=== PATIENT | female | born 1940 | race Caucasian/White ===

== ENCOUNTER 2018-03-18 07:37 | Day surgery (SDC) | payer BC ==
[2018-03-13 15:30] VITALS: BMI 32.0
[2018-03-18 09:34] VITALS: TEMP 97.9
[2018-03-18 10:35] VITALS: BP 110/56; PULSE 62
--- NOTE | 2018-03-19 14:09 | PATH ---
Surgical Pathology Report Patient Name: AMY GARCÍA [facility]. Rec. #: [id number] /Age/Gender: 1940 (Age: 77) / F Account: [id number] Location: U-ENDOSCOPY Taken: 03/18/2018 Received: 03/18/2018 Reported: 03/19/2018 Physicians: Yani Payne M.D. Specimen(s) Received A: BX RIGHT COLON POLYP B: BX DISTAL TRANSVERSE COLON POLYP Clinical History Colon screening, history of diverticulitis Postoperative diagnosis: Colon polyps, diverticulosis Final Diagnosis A. RIGHT COLON POLYP, BIOPSY: COLONIC MUCOSA WITH FOCAL LYMPHOID AGGREGATE. B. DISTAL TRANSVERSE COLON POLYP, POLYPECTOMY: TUBULAR ADENOMA. Electronically Signed Thaddeus Richmond M.D. Gross Description A. Received in formalin, labeled "biopsy right colon polyp" are 2 song, irregular portions of soft tissue measuring 0.3 and 0.4 cm. in greatest dimension. The specimens are submitted in toto in one cassette. B. Received in formalin, labeled "biopsy distal transverse colon polyp" are 2 song, irregular portions of soft tissue averaging 0.3 cm. in greatest dimension. The specimens are submitted in toto in one cassette. 03/18/2018 saudi03/18/2018
== END 2018-03-18 10:33 | disposition home or self-care (01) ==
LOC: JASU-ENDO 07:37
PROVIDERS: ATTEND Internal Medicine Gastroenterology
PROC: 0DBL8ZX Excision of Transverse Colon, Via Natural or Artificial Opening Endoscopic, Diagnostic (ICD-10-PCS; 2018-03-18)
PROC: 0DBK8ZX Excision of Ascending Colon, Via Natural or Artificial Opening Endoscopic, Diagnostic (ICD-10-PCS; principal; 2018-03-18 08:45)
DX: Z12.11 Encounter for screening for malignant neoplasm of colon (principal); D12.2 Benign neoplasm of ascending colon; D12.3 Benign neoplasm of transverse colon; K57.30 Diverticulosis of large intestine without perforation or abscess without bleeding
CPT/HCPCS: 88305-TC

== ENCOUNTER 2019-11-15 23:48 | Emergency (ER) | payer BC ==
[2019-11-15 23:57] VITALS: BP 154/86; PULSE 86; TEMP 98.1; BMI 34.2
--- NOTE | 2019-11-16 00:12 | PDOC ---
History of Present Illness - General Chief Complaint: Back Pain Stated Complaint: BACK PAIN Time Seen by Provider: 11/16/19 00:12 History Source: Patient Exam Limitations: No Limitations - History of Present Illness Initial Comments: 11/16/19 00:12 79 year old female w PMHx HLD, L paraspinal thoracolumbar mass presenting w 2d persistent mild pain from paraspinal mass worse when lying on back. Took 2 advil w/o relief. 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 Concerned that mass is hurting now, which it never did before. Denies trauma, BLE weakness/numbness, urinary/bowel mvmt changes, fever, SOB Past History - Medical History Allergies/Adverse Reactions: Allergies Allergy/AdvReac Type Severity Reaction Status Date / Time No Known Allergies Allergy Verified 11/15/19 23:54 Home Medications: Ambulatory Orders Pravastatin Sodium 40 mg PO HS 01/06/14 Acetaminophen [Tylenol .Regular Strength -] 650 mg PO Q6H PRN tablet 12/13/17 Polyethylene Glycol 3350 [Miralax 119 gm Btl -] 17 gm PO BID bottle 12/13/17 Anemia: No Asthma: No Cancer: No Cardiac Disorders: No CVA: No COPD: No CHF: No Dementia: No Diabetes: No GI Disorders: No Disorders: No HTN: No Hypercholesterolemia: Yes Liver Disease: No Seizures: No Thyroid Disease: No - Surgical History Abdominal Surgery: Yes Appendectomy: No Cardiac Surgery: No Cholecystectomy: No Lung Surgery: No Neurologic Surgery: No Orthopedic Surgery: Yes (LEFT KNEE ARTHROSCOPY; Bunionectomy and Hammer Toe Repair) - Psycho-Social/Smoking History Smoking History: Never smoked Have you smoked in the past 12 months: No Information on smoking cessation initiated: No - Substance Abuse Hx (Audit-C & DAST Scrn) How often the patient has a drink containing alcohol: Never Score: In Men: 4 or > Positive; In Women: 3 or > Positive: 0 Screen Result (Pos requires Nsg. Audit-10AR): Negative In the last yr the pt used illegal drug/Rx for NonMed reason: No Score: Yes response is considered Positive: 0 Screen Result (Positive result requires Nsg. DAST-10): Negative Review of Systems - Review of Systems Constitutional: No: Chills, Fever HEENTM: No: Eye Pain, Nose Pain Respiratory: No: Cough, Shortness of Breath Cardiac (ROS): No: Chest Pain, Lightheadedness ABD/GI: No: Abdominal Distended, Constipated, Diarrhea, Nausea, Vomiting : No: Burning, Dysuria Musculoskeletal: Yes: Back Pain. No: Joint Pain Integumentary: No: Bruising, Dryness Neurological: No: Headache, Seizure Psychiatric: No: Anxiety, Depression Endocrine: No: Intolerance to Cold, Intolerance to Heat Hematologic/Lymphatic: No: Anemia, Blood Clots *Physical Exam - Vital Signs Last Vital Signs Temp Pulse Resp BP Pulse Ox 98.1 F 86 20 154/86 97 11/15/19 23:54 11/15/19 23:54 11/15/19 23:54 11/15/19 23:54 11/15/19 23:54 - Physical Exam General Appearance: Yes: Nourished, Appropriately Dressed, Mild Distress HEENT: positive: EOMI, PRABHA, Normal Voice, Hearing Grossly Normal. negative: Scleral Icterus (R), Scleral Icterus (L), Nasal Congestion Neck: positive: Supple. negative: Tender, Rigid Respiratory/Chest: positive: Lungs Clear, Normal Breath Sounds. negative: Chest Tender, Respiratory Distress Cardiovascular: positive: Regular Rhythm, Regular Rate, S1, S2. negative: Edema, Murmur Gastrointestinal/Abdominal: positive: Normal Bowel Sounds, Flat, Soft. negative: Tender, Organomegaly Musculoskeletal: positive: Other (4x4cm L thoracolumbar subcutaneous firm minimally tender mass, no skin changes). negative: Vertebral Tenderness Integumentary: positive: Normal Color, Warm Neurologic: positive: conventional underwriter II-XII NML intact, Fully Oriented, Alert, Normal Mood/Affect, Normal Response, Motor Strength 5/5, Respond to painful stimul, Responsive. negative: Numbness, Confused, Disoriented Medical Decision Making - Medical Decision Making 11/16/19 00:53 79 year old female w PMHx HLD, L paraspinal thoracolumbar mass presenting w 2d persistent mild pain from paraspinal mass Likely lipoma (well circumscribed mass on bedside US). Low concern for cauda equina (no BLE weakness, intact urinary/bowel mvmt) vs abscess (afebrile) Given lido patch, tylenol DC home w PCP f/u and supportive care Discharge - Discharge Information Problems reviewed: Yes Clinical Impression/Diagnosis: Mass on back Back pain Qualifiers: Back pain location: thoracic back pain Chronicity: acute Back pain laterality: left Qualified Code(s): M54.6 - Pain in thoracic spine Condition: Stable Disposition: HOME - Follow up/Referral Referrals: Rosales Gonsales MD [Primary Care Provider] - - Patient Discharge Instructions Patient Printed Discharge Instructions: DI for Thoracic Back Pain Additional Instructions: Your exam did not show anything concerning Take tylenol or ibuprofen every 6 hours for pain Please follow up with your primary care doctor Come back to the ED if you have trouble walking, leg weakness/numbness, or trouble urinating or passing stool - Post Discharge Activity
[2019-11-16] MEDS ORDERED: ACETAMINOPHEN 500 MG TABLET (FP) PO ONE (00:35)
[2019-11-16] MEDS ORDERED: LIDOCAINE 5% TOPICAL PATCH TP ONE (00:35)
[2019-11-16] MEDS ORDERED: LIDOCAINE 5% TOPICAL PATCH ONE (00:40)
[2019-11-16] MEDS ORDERED: ACETAMINOPHEN 325 MG TABLET (FP) ONE (00:40)
--- NOTE | 2019-11-16 01:09 | PDOC ---
Documentation entered by Javon Gan SCRIBE, acting as scribe for Ivis Chopra MD. Ivis Chopra MD: This documentation has been prepared by the joseibe, Javon Gan SCRIBE, under my direction and personally reviewed by me in its entirety. I confirm that the documentation accurately reflects all work, treatment, procedures, and medical decision making performed by me. Attending Attestation - Resident Resident Name: Quang Colon - ED Attending Attestation I have performed the following: I have examined & evaluated the patient, The case was reviewed & discussed with the resident, I agree w/resident's findings & plan, Exceptions are as noted - HPI HPI: 11/16/19 01:08 The patient is an 79 year old female with a significant past medical history of HLD and L paraspinal thoracolumbar mass who presents to the emergency department with constant mild back pain, which is worsened with lying down, that began 2 days ago. 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 The patient also endorses she took 2 Advil with no relief. The patient denies a history of similar symptoms. The patient denies trauma, general weakness, chest pain and shortness of breath. Denies fever, chills and/or any GI symptoms. Denies any symptoms. Denies any other symptoms. Allergies: NKDA PCP: Dr. Gonsales - Physicial Exam PE: 11/16/19 00:27 GENERAL: Awake, alert, and fully oriented, in no acute distress HEAD: No signs of trauma EYES: PERRLA, EOMI, sclera anicteric, conjunctiva clear ENT: Auricles normal inspection, hearing grossly normal, nares patent, oropharynx clear without exudates. Moist mucosa NECK: Normal ROM, supple, no lymphadenopathy, JVD, or masses LUNGS: Breath sounds equal, clear to auscultation bilaterally. No wheezes, and no crackles HEART: Regular rate and rhythm, normal S1 and S2, no murmurs, rubs or gallops ABDOMEN: Soft, nontender, normoactive bowel sounds. No guarding, no rebound. No masses EXTREMITIES: Normal range of motion, no edema. No clubbing or cyanosis. No cords, erythema, or tenderness NEUROLOGICAL: Cranial nerves II through XII grossly intact. Normal speech, normal gait. Motor and sensation intact. SKIN: Warm, Dry, normal turgor, no rashes. +Moderate-sized soft mobile lesion to the L mid-back, no induration, no overlying skin changes. - Medical Decision Making Pain is localized to the area of known lipoma. No signs of cellulitis. Lidoderm patch applied. Outpatient f/u, as she may want to have it resected on an elective basis due to the size and that it is getting painful at times. Discharge - Discharge Information Problems reviewed: Yes Clinical Impression/Diagnosis: Mass on back Back pain Qualifiers: Back pain location: thoracic back pain Chronicity: acute Back pain laterality: left Qualified Code(s): M54.6 - Pain in thoracic spine Condition: Stable Disposition: HOME - Follow up/Referral Referrals: Rosales Gonsales MD [Primary Care Provider] - - Patient Discharge Instructions Patient Printed Discharge Instructions: DI for Thoracic Back Pain Additional Instructions: Your exam did not show anything concerning Take tylenol or ibuprofen every 6 hours for pain Please follow up with your primary care doctor Come back to the ED if you have trouble walking, leg weakness/numbness, or trouble urinating or passing stool - Post Discharge Activity
[2019-11-16] MEDS ORDERED: LIDOCAINE PATCH REMOVAL MC SCH (22:00)
== END 2019-11-16 00:58 | disposition home or self-care (01) ==
LOC: JER 23:48
DX: M54.6 Pain in thoracic spine (principal)
CPT/HCPCS: 99284-25

== ENCOUNTER 2020-04-09 16:40 | Emergency (ER) | payer BC ==
[2020-04-09 16:49] VITALS: BP 157/73; PULSE 100; TEMP 98.3; BMI 32.8
[2020-04-09] MEDS ORDERED: NAPROXEN 375 MG TABLET PO ONE (17:23)
[2020-04-09] MEDS ORDERED: NAPROXEN 500 MG TABLET ONE (17:29)
== END 2020-04-09 18:20 | disposition home or self-care (01) ==
LOC: JER 16:40 → JERFT 16:40
DX: M17.11 Unilateral primary osteoarthritis, right knee (principal); M25.561 Pain in right knee
CPT/HCPCS: 73562-TC-RT-FY; 99284-25

== ENCOUNTER 2020-08-11 04:17 | Observation (INO) | payer BC ==
[2020-08-10 11:00] VITALS: BMI 33.7
[2020-08-11] MEDS ORDERED: LIDOCAINE HCL/PF 2% SDV 5ML VIAL ONE (07:21)
[2020-08-11] MEDS ORDERED: MIDAZOLAM HCL 2 MG/2 ML SINGLE DOSE VIAL ONE (07:21)
[2020-08-11] MEDS ORDERED: PROPOFOL 20 ML ONE (07:21)
[2020-08-11] MEDS ORDERED: DEXAMETHASONE SOD PHOSPHATE 4 MG/1 ML VIAL ONE (08:03)
[2020-08-11] MEDS ORDERED: ONDANSETRON 4 MG/2 ML VIAL ONE (08:03)
[2020-08-11] MEDS ORDERED: ONDANSETRON 4 MG/2 ML VIAL IVPUSH PRN (10:41)
[2020-08-11] MEDS ORDERED: ENOXAPARIN NA (PORCINE) 40 MG/0.4 ML DISP.SYRIN SQ ONE (11:41)
[2020-08-11] MEDS ORDERED: POLYETHYLENE GLYCOL 3350 119 GM BTL PO SCH (11:45)
[2020-08-11] MEDS: ENOXAPARIN NA (PORCINE) 40 MG/0.4 ML DISP.SYRIN SQ SCH (11:45)
[2020-08-11 19:45] LABS: BASO % 0.2 % (0-2.0); EOS % 0.1 % (0-4.5); HEMATOCRIT 40.2 % (32.4-45.2); HEMOGLOBIN 13.7 GM/dL (10.7-15.3); LYMPH % 9.6 % (8-40); MCH 31.7 pg (25.7-33.7); MCHC 34.1 g/dl (32.0-36.0); MEAN CELL VOLUME 93.1 fl (80-96); MEAN PLT VOLUME 9.3 fl (7.5-11.1); MONO % 1.9 % (3.8-10.2); NEUT % 88.2 % (42.8-82.8); PLATELET COUNT 230 K/MM3 (134-434); RBC 4.32 M/mm3 (3.60-5.2); RDW 13.3 % (11.6-15.6); WHITE BLOOD COUNT 9.2 K/mm3 (4.0-10.0)
[2020-08-11 19:51] LABS: CHLORIDE 106 mmol/L (98-107); SODIUM 141 mmol/L (136-145)
[2020-08-11 19:54] LABS: ALBUMIN 3.5 g/dl (3.4-5.0); ANION GAP 10 MMOL/L (8-16); CALCIUM 8.9 mg/dL (8.5-10.1); CO2 24 mmol/L (21-32); GLUCOSE,RANDOM 155 mg/dL (74-106)
[2020-08-11 19:57] LABS: SGOT/AST 18 U/L (15-37); SGPT/ALT 24 U/L (13-61)
[2020-08-11 19:59] LABS: BILIRUBIN,TOTAL 0.4 mg/dL (0.2-1)
[2020-08-11 20:00] LABS: ALK PHOS 70 U/L (45-117)
[2020-08-11] MEDS ORDERED: ATORVASTATIN CA 10 MG TABLET (FP) PO SCH (22:00)
[2020-08-12 08:10] LABS: BASO % 0.1 % (0-2.0); EOS % 0.1 % (0-4.5); HEMATOCRIT 39.8 % (32.4-45.2); HEMOGLOBIN 13.4 GM/dL (10.7-15.3); LYMPH % 14.5 % (8-40); MCH 31.2 pg (25.7-33.7); MCHC 33.5 g/dl (32.0-36.0); MEAN PLT VOLUME 8.8 fl (7.5-11.1); MONO % 5.8 % (3.8-10.2); NEUT % 79.5 % (42.8-82.8); PLATELET COUNT 209 K/MM3 (134-434); RBC 4.29 M/mm3 (3.60-5.2); RDW 13.3 % (11.6-15.6); WHITE BLOOD COUNT 12.3 K/mm3 (4.0-10.0)
[2020-08-12 08:17] LABS: CHLORIDE 108 mmol/L (98-107); SODIUM 141 mmol/L (136-145)
[2020-08-12 08:20] LABS: ALBUMIN 3.2 g/dl (3.4-5.0); ANION GAP 3 MMOL/L (8-16); BLOOD UREA NITROGEN 20.9 mg/dL (7-18); CALCIUM 9.4 mg/dL (8.5-10.1); CO2 30 mmol/L (21-32); GLUCOSE,RANDOM 106 mg/dL (74-106)
[2020-08-12 08:23] LABS: CREATININE 0.8 mg/dL (0.55-1.3); SGOT/AST 19 U/L (15-37); SGPT/ALT 22 U/L (13-61)
[2020-08-12 08:25] LABS: BILIRUBIN,TOTAL 0.4 mg/dL (0.2-1); TOT PROT 6.6 g/dl (6.4-8.2)
[2020-08-12 08:26] LABS: ALK PHOS 66 U/L (45-117)
[2020-08-12] MEDS: LACTATED RINGERS SOLUTION 1,000 ML IV SCH ×2 (09:29→11:13)
[2020-08-12] MEDS: ENOXAPARIN NA (PORCINE) 40 MG/0.4 ML DISP.SYRIN SQ SCH (11:13)
[2020-08-12 13:53] VITALS: BP 118/54
[2020-08-12 14:36] VITALS: PULSE 58; TEMP 97.6
== END 2020-08-12 14:56 | disposition home or self-care (01) ==
LOC: JASU-SURG 04:17 → J2C 11:25 → INTOOBSV 11:25 → J6WEST-2 17:41
PROVIDERS: ADMIT Family Medicine; ATTEND Nurse Practitioner Acute Care
PROC: 3E0337Z Introduction of Electrolytic and Water Balance Substance into Peripheral Vein, Percutaneous Approach (ICD-10-PCS; 2020-08-11)
PROC: 3E023GC Introduction of Other Therapeutic Substance into Muscle, Percutaneous Approach (ICD-10-PCS; principal; 2020-08-11 08:00)
DX: R42 Dizziness and giddiness (principal); E78.5 Hyperlipidemia, unspecified; R10.9 Unspecified abdominal pain; R10.30 Lower abdominal pain, unspecified; M17.11 Unilateral primary osteoarthritis, right knee; K59.01 Slow transit constipation; M54.16 Radiculopathy, lumbar region; E66.9 Obesity, unspecified; Z68.33 Body mass index [BMI] 33.0-33.9, adult; L30.9 Dermatitis, unspecified; Z88.8 Allergy status to other drugs, medicaments and biological substances; R11.2 Nausea with vomiting, unspecified; Z29.9 Encounter for prophylactic measures, unspecified
CPT/HCPCS: 36415; 80053; 82962; 83735; 84100; 84484; 85025; 93005; 93010; 93306-TC; 94760; 96360; 96372; G0378

== ENCOUNTER 2020-08-18 04:13 | Day surgery (SDC) | payer BC ==
[2020-08-16 13:58] VITALS: BMI 33.7
[2020-08-18] MEDS ORDERED: PROPOFOL 20 ML ONE (07:25)
[2020-08-18] MEDS ORDERED: SUCCINYLCHOLINE CHLORIDE 200 MG/10 ML SYRINGE ONE (07:26)
[2020-08-18] MEDS ORDERED: MIDAZOLAM HCL 2 MG/2 ML SINGLE DOSE VIAL ONE (07:26)
[2020-08-18] MEDS ORDERED: LIDOCAINE 1%/EPI 1:100000 (50 ML MULTI DOSE VIAL) ONE (07:28)
[2020-08-18] MEDS ORDERED: LIDOCAINE HCL/PF 2% SDV 5ML VIAL ONE (07:34)
[2020-08-18] MEDS ORDERED: ceFAZolin SODIUM 1 GM VIAL ONE (07:34)
[2020-08-18] MEDS ORDERED: KETOROLAC TROMETHAMINE 30 MG/1 ML VIAL ONE (07:34)
[2020-08-18] MEDS ORDERED: DEXAMETHASONE SOD PHOSPHATE 4 MG/1 ML VIAL ONE (07:34)
[2020-08-18] MEDS ORDERED: ceFAZolin SODIUM 1 GM VIAL IVPB ONE (08:11)
[2020-08-18] MEDS ORDERED: BUPIVACAINE HCL/PF 0.5% (5 MG/ML) 30 ML VIAL IJ ONE ×2 (08:25→08:30)
[2020-08-18] MEDS ORDERED: LIDOCAINE 1%/EPI 1:100000 (20 ML MULTI DOSE VIAL) IJ ONE ×3 (08:25→08:30)
[2020-08-18] MEDS ORDERED: BUPIVACAINE HCL/PF 0.5% (5MG/ML) 10 ML VIAL IJ ONE (08:43)
[2020-08-18] MEDS ORDERED: ACETAMINOPHEN 1000 MG/100 ML VIAL (NON FORMULARY) IVPB ONE (09:09)
[2020-08-18] MEDS ORDERED: oxyCODONE HCL 5 MG TABLET PO PRN ×2 (09:09)
[2020-08-18] MEDS ORDERED: ONDANSETRON 4 MG/2 ML VIAL IVPUSH PRN (09:09)
[2020-08-18] MEDS ORDERED: LACTATED RINGERS SOLUTION 1,000 ML IV SCH (09:15)
[2020-08-18] MEDS ORDERED: ACETAMINOPHEN INJECTION 100 ML IVPB ONE (09:26)
[2020-08-18 11:47] VITALS: TEMP 97
[2020-08-18 11:59] VITALS: BP 130/60; PULSE 60
== END 2020-08-18 10:55 | disposition home or self-care (01) ==
LOC: JASU-SURG 04:13
PROVIDERS: ATTEND Orthopaedic Surgery
PROC: 0SBC4ZZ Excision of Right Knee Joint, Percutaneous Endoscopic Approach (ICD-10-PCS; 2020-08-18)
PROC: 0SBC4ZZ Excision of Right Knee Joint, Percutaneous Endoscopic Approach (ICD-10-PCS; principal; 2020-08-18 08:00)
DX: M23.8X1 Other internal derangements of right knee (principal); M23.321 Other meniscus derangements, posterior horn of medial meniscus, right knee; M23.351 Other meniscus derangements, posterior horn of lateral meniscus, right knee
CPT/HCPCS: 94760; J0131

== ENCOUNTER 2024-02-11 21:38 | Emergency (ER) | payer BC ==
[2024-02-11 21:48] VITALS: BMI 39.0
[2024-02-12] MEDS: MINERAL OIL ENEMA 133 ML ENEMA RC ONE (00:20)
[2024-02-12 01:25] VITALS: BP 136/80; PULSE 67; RESP 18; TEMP 97.7
== END 2024-02-12 01:50 | disposition home or self-care (01) ==
LOC: JER 21:38
DX: K64.4 Residual hemorrhoidal skin tags (principal); K59.00 Constipation, unspecified
CPT/HCPCS: 99283-25

== ENCOUNTER 2024-02-13 10:12 | Emergency (ER) | payer BC ==
[2024-02-13 10:21] VITALS: RESP 16; BMI 37.3
[2024-02-13] MEDS ORDERED: ACETAMINOPHEN 325 MG TABLET (FP) ONE (12:19)
[2024-02-13] MEDS: ACETAMINOPHEN 325 MG TABLET (FP) PO ONE (12:43)
[2024-02-13 12:50] LABS: BASO % 0.4 % (0-2.0); EOS % 1.4 % (0-4.5); HEMATOCRIT 41.6 % (32.4-45.2); LYMPH % 25.2 % (8-40); MCH 31.3 pg (25.7-33.7); MCHC 33.7 g/dl (32.0-36.0); MEAN CELL VOLUME 92.9 fl (80-96); MEAN PLT VOLUME 8.5 fl (7.5-11.1); MONO % 6.5 % (3.8-10.2); NEUT % 66.5 % (42.8-82.8); PLATELET COUNT 215 10^3/uL (134-434); RBC 4.48 M/mm3 (3.60-5.2); RDW 13.3 % (11.6-15.6); WHITE BLOOD COUNT 7.6 K/mm3 (4.0-10.0)
[2024-02-13 13:09] LABS: POTASSIUM 4.5 mmol/L (3.5-5.1)
[2024-02-13 13:11] LABS: ALBUMIN 3.7 g/dl (3.4-5.0); BLOOD UREA NITROGEN 12.7 mg/dL (7-18); CALCIUM 9.6 mg/dL (8.5-10.1)
[2024-02-13 13:12] LABS: MAGNESIUM 2.3 mg/dL (1.8-2.4)
[2024-02-13 13:14] LABS: ACTIVATED PTT 33.4 SECONDS (25.2-36.5); INR 0.98 (0.83-1.09); PROTHROMBIN TIME (PATIENT) 11.3 SEC (9.7-13.0)
[2024-02-13 13:15] LABS: CREATININE 0.7 mg/dL (0.55-1.3)
[2024-02-13 13:16] LABS: BILIRUBIN,TOTAL 0.6 mg/dL (0.2-1)
[2024-02-13 17:14] VITALS: BP 153/65; PULSE 73; TEMP 98.4
[2024-02-13] MEDS: MINERAL OIL ENEMA 133 ML ENEMA RC ONE (17:38)
[2024-02-13] MEDS ORDERED: LIDOCAINE HCL 2% JELLY 6 ML TP ONE (18:28)
[2024-02-13] MEDS: LIDOCAINE HCL 2% JELLY 10 ML CARTRIDGE PR ONE (18:41)
[2024-02-13] MEDS: HYDROCORTISONE 2.5% TOPICAL CREAM 30 GM TUBE PR ONE (18:55)
== END 2024-02-13 19:00 | disposition home or self-care (01) ==
LOC: JER 10:12
DX: K59.00 Constipation, unspecified (principal)
CPT/HCPCS: 36415; 74177-TC; 80053; 83605; 83690; 83735; 85025; 85610; 85730; 86850; 86900; 86901; 99285-25; Q9967